=== PATIENT | male | born 1960 | race Caucasian/White ===

== ENCOUNTER → 2016-11-14 | Outpatient (REF) | payer BC, SELFPAY | LOC: M LAB REF 16:53 | PROVIDERS: ATTEND Nurse Practitioner Adult Health | DX: E78.2 Mixed hyperlipidemia (principal) ==

== ENCOUNTER → 2017-05-29 | Outpatient (REF) | payer BC ==
[2017-05-29 12:53] LABS: BLOOD UREA NITROGEN 27 MG/DL (7-18)
[2017-05-29 12:53] LABS: CREATININE FOR GFR 1.33 MG/DL (0.70-1.30)
== END ==
LOC: M LABDRWAD 12:04
DX: I70.212 Atherosclerosis of native arteries of extremities with intermittent claudication, left leg (principal)
CPT/HCPCS: 82565

== ENCOUNTER → 2017-06-01 | Outpatient (REF) | payer BC ==
[2017-06-01 11:07] LABS: BLOOD UREA NITROGEN 32 MG/DL (7-18)
[2017-06-01 11:07] LABS: CREATININE FOR GFR 1.49 MG/DL (0.70-1.30); GLOMERULAR FILTRATION RATE 51.8 (>56)
== END ==
LOC: M LABDRWAD 10:37
DX: Z48.812 Encounter for surgical aftercare following surgery on the circulatory system (principal)

== ENCOUNTER → 2017-06-08 | Outpatient (REF) | payer BC ==
[2017-06-08 13:33] LABS: ANION GAP 7 MEQ/L (8-16); BLOOD UREA NITROGEN 27 MG/DL (7-18); CALCIUM LEVEL 10.1 MG/DL (8.5-10.1); CARBON DIOXIDE LEVEL 29 MEQ/L (21-32); CHLORIDE LEVEL 105 MEQ/L (98-107); CREATININE FOR GFR 1.32 MG/DL (0.70-1.30); GLOMERULAR FILTRATION RATE 59.5 (>56); GLUCOSE, FASTING 118 MG/DL (70-100); SODIUM LEVEL 141 MEQ/L (136-145)
== END ==
LOC: M LAB REF 12:31
DX: E11.21 Type 2 diabetes mellitus with diabetic nephropathy (principal)
CPT/HCPCS: 80048

== ENCOUNTER 2018-06-10 10:18 | Day surgery (SDC) | payer BC ==
[~2018-06-10] VITALS: Ht 188 cm; Wt 126.1 kg
[~2018-06-10 10:18] MED LIST: ADVI1CAP2 PO; LEVO75TA4 PO; LISI-672 PO; METF10004 PO; METO1TAB33 PO; NS 1,000 ML IV ONE; PLAV1TAB2 PO; ROSU40TA3 PO; TRUL0.5I SC
--- NOTE | 2018-06-10 11:34 | ROOR ---
Patient Name: Arnulfo Lozano Procedure Date: 06/10/2018 11:02 AM Date of : 1960 Age: 58 Room: [facility] Gender: Male Note Status: Finalized Procedure: Colonoscopy Indications: High risk colon cancer surveillance: Personal history of colonic polyps Providers: Milo Hobbs Jr, MD Referring MD: Stacey Vergara NP Requesting Provider: Medicines: Propofol per Anesthesia Complications: No immediate complications. Procedure: Pre-Anesthesia Assessment: - Prior to the procedure, a History and Physical was performed, and patient medications and allergies were reviewed. The patient is competent. The risks and benefits of the procedure and the sedation options and risks were discussed with the patient. All questions were answered and informed consent was obtained. Patient identification and proposed procedure were verified by the physician and the nurse in the pre-procedure area and in the procedure room. Mental Status Examination: alert and oriented. Airway Examination: normal oropharyngeal airway and neck mobility. Respiratory Examination: clear to auscultation. CV Examination: normal. ASA Grade Assessment: II - A patient with mild systemic disease. After reviewing the risks and benefits, the patient was deemed in satisfactory condition to undergo the procedure. The anesthesia plan was to use moderate sedation / analgesia (conscious sedation). Immediately prior to administration of medications, the patient was re-assessed for adequacy to receive sedatives. The heart rate, respiratory rate, oxygen saturations, blood pressure, adequacy of pulmonary ventilation, and response to care were monitored throughout the procedure. The physical status of the patient was re-assessed after the procedure. The Colonoscope was introduced through the anus and advanced to the cecum, identified by appendiceal orifice and ileocecal valve. The colonoscopy was performed without difficulty. The patient tolerated the procedure well. The quality of the bowel preparation was adequate. Findings: The rectum, recto-sigmoid colon, sigmoid colon, transverse colon, ascending colon, cecum, appendiceal orifice and ileocecal valve appeared normal. Two polyps were found in the descending colon. The polyps were small in size. These polyps were removed with a jumbo cold forceps. Resection and retrieval were complete. Impression: - The rectum, recto-sigmoid colon, sigmoid colon, transverse colon, ascending colon, cecum, appendiceal orifice and ileocecal valve are normal. - Two small polyps in the descending colon, removed with a jumbo cold forceps. Resected and retrieved. Recommendation: - Discharge patient to home (ambulatory). - Telephone my office for pathology results in 1 week. Milo Hobbs MD Milo Hobbs Jr, MD 06/10/2018 11:33:32 AM This report has been signed electronically. Number of Addenda: 0 Note Initiated On: 06/10/2018 11:02 AM Estimated Blood Loss: Estimated blood loss: none.
[2018-06-10 11:50] VITALS: BP 113/68
== END 2018-06-10 12:00 | disposition home or self-care (01) ==
LOC: M OPP 10:18
PROVIDERS: ATTEND Surgery
DX: Z86.010 Personal history of colon polyps (principal); D12.4 Benign neoplasm of descending colon; G47.30 Sleep apnea, unspecified; I25.2 Old myocardial infarction; Z79.84 Long term (current) use of oral hypoglycemic drugs; Z79.899 Other long term (current) drug therapy; F17.210 Nicotine dependence, cigarettes, uncomplicated; Z95.5 Presence of coronary angioplasty implant and graft

== ENCOUNTER → 2018-06-21 | Outpatient (CLI) | payer BC ==
[~2018-06-21] MED LIST changes: -NS 1,000 ML IV ONE
--- NOTE | 2018-06-21 14:54 | REP ---
Clinical: Peripheral vascular disease . Technique: Rod scale and color Doppler evaluation using linear high frequency transducer Findings: Two-dimensional rod scale and color images demonstrate minimal atheromatous plaquing. Color Doppler interrogation demonstrates normal arterial wave patterns and velocities with no significant spectral broadening. Normal flow direction is appreciated in the bilateral vertebral arteries. RIGHT (cm/s) LEFT (cm/s) ICA peak systolic velocity 97.8 79.2 ICA diastolic velocity 17.8 20.0 ECA peak systolic velocity 132.2 151.0 CCA peak systolic velocity 113.9 122.2 ICA/CCA ratio 0.9 0.8 Impression: No hemodynamically significant areas of narrowing or stenosis appreciated. Based on set standards narrowing falls within the less than 50% range. Electronically Signed by Kaleb Malik MD 06/21/2018 02:45 P
== END ==
LOC: M RAD 14:14
PROVIDERS: ATTEND Physician Assistant
DX: I73.9 Peripheral vascular disease, unspecified (principal)

== ENCOUNTER → 2019-02-03 | Outpatient (CLI) | payer BC ==
[~2019-02-03] MED LIST changes: +ISOVUE-370 76% 100ML VIAL (Q9967) As Ordered ONE; -ROSU40TA3 PO; +ROSU40TA4 PO
--- NOTE | 2019-02-03 13:54 | REP ---
CT ANGIOGRAPHY OF THE AT ABDOMINAL AORTA AND BILATERAL LOWER EXTREMITY RUNOFF ARTERIES WITH IV CONTRAST: HISTORY: Atherosclerosis. Intermittent bilateral claudication. 100 mL of intravenous Isovue 370 is administered. Comparison study is from August 18, 2012. CT ANGIOGRAPHIC FINDINGS: There is diffuse fatty infiltration of the liver. The suprarenal and infrarenal abdominal aorta are normal in caliber. Scattered calcification. The celiac axis is unremarkable. There is a high-grade somewhat elongate stenosis in the proximal SMA, 60-75%. This appears to be unchanged. Singular nonstenotic renal arteries are noted. The distal abdominal aorta shows circumferential atheromatous plaquing with calcific and non- calcific plaquing and high-grade distal aortic stenosis. This is a new finding, 75-80%. The inferior mesenteric artery origin is nonstenotic and a fairly large LAUREN is seen. There is extensive calcific plaquing at the common iliacs. The right common iliac artery is patent but there is a high-grade stenosis. Patent common iliac artery perfuses the internal iliac artery but the right external iliac artery is occluded from its origin. The left common iliac artery is occluded from its origin. There is a left common iliac artery stent which is occluded. The internal iliac artery is perfused but calcific. The distal external iliac artery on the left is reconstituted via collaterals. There is a left to right fem-fem crossover graft in the suprapubic subcutaneous space, however this graft is occluded. Internal epigastric collaterals reconstitute the superficial femoral arteries bilaterally. Profunda femoral arteries are patent bilaterally. There is some mild atherosclerotic irregularity in the superficial femoral arteries but no high-grade stenosis is appreciated. Popliteal arteries are at a fairly good caliber. Trifurcations are clear. Three-vessel calf runoff is seen to the distal calf. IMPRESSION: Extensive aortoiliac disease with new high-grade stenosis of the infrarenal abdominal aorta at the level of the takeoff of the patent LAUREN. There is an SMA stenosis. Bilateral iliac occlusive disease. Occluded fem-fem crossover graft. Electronically Signed by Lambert Way MD 02/03/2019 03:48 P
== END ==
LOC: M RAD 11:32
PROVIDERS: ATTEND Physician Assistant
DX: I70.513 Atherosclerosis of nonautologous biological bypass graft(s) of the extremities with intermittent claudication, bilateral legs (principal)
CPT/HCPCS: 75635; Q9967

== ENCOUNTER → 2019-10-24 | Outpatient (CLI) | payer BC ==
[~2019-10-24] MED LIST changes: -ISOVUE-370 76% 100ML VIAL (Q9967) As Ordered ONE; -LISI-672 PO; +LISI30TA4 PO
--- NOTE | 2019-11-24 17:11 | REP ---
BILATERAL RENAL SONOGRAPHY WITH RENAL ARTERY DOPPLER ASSESSMENT: HISTORY: Chronic kidney disease stage III. FINDINGS: Scanning at the level of the urinary bladder shows no morphologic abnormality. The bladder is not well distended. Renal cortical echogenicity pattern is normal. The renal contours are smooth. There is no evidence of hydronephrosis on either side. No cyst, mass or visible calculus is seen. Right renal dimensions are 11.4 x 5.9 x 5.3 cm and the left measures 11.9 x 4.4 x 6.4 cm. RENAL ARTERY DOPPLER ASSESSMENT: Peak systolic flow velocity in the abdominal aorta at the left main renal artery is measured at 131 cm/sec, which is normal. Peak systolic flow velocity measured in the right main renal artery is 115 cm/sec and the left is measured at 159 cm/sec. Renal to aortic flow velocities are therefore normal bilaterally, measured at 0.9 mm on the right and 1.22 on the left. Resistive induces and acceleration times are measured in the internal arteries of the upper, mid and lower pole of each kidney and these values are normal bilaterally. IMPRESSION: No morphologic abnormality noted. There is no Doppler evidence of renal artery stenosis. MTDD
== END ==
LOC: M RAD 06:45
PROVIDERS: ATTEND Internal Medicine Nephrology
DX: N18.3 Chronic kidney disease, stage 3 (moderate) (principal); I15.1 Hypertension secondary to other renal disorders

== ENCOUNTER → 2020-12-04 | Outpatient (REF) | payer BC ==
[2020-12-04 18:52] LABS: FOLATE 7.3 NG/ML
== END ==
LOC: M LAB REF 16:45
PROVIDERS: ATTEND Nurse Practitioner Adult Health
DX: G60.9 Hereditary and idiopathic neuropathy, unspecified (principal)

== ENCOUNTER → 2021-02-27 | Outpatient (CLI) | payer BC | LOC: M RAD 11:05 | PROVIDERS: ATTEND Physician Assistant | DX: I65.23 Occlusion and stenosis of bilateral carotid arteries (principal) ==

== ENCOUNTER → 2021-06-25 | Outpatient (REF) | payer BC ==
[2021-06-27 08:14] LABS: LDL DIRECT 37 mg/dL (0-99)
== END ==
LOC: M LAB REF 12:20
PROVIDERS: ATTEND Nurse Practitioner Adult Health
DX: E11.65 Type 2 diabetes mellitus with hyperglycemia (principal)

== ENCOUNTER 2021-07-24 11:46 | Observation (INO) | payer BC ==
[~2021-07-24] VITALS: Ht 188 cm; Wt 130.0 kg
[2021-07-24 12:44] LABS: BASO % 0.1 % (0.0-1.0); EOS # 0.2 10^3/uL (0.0-0.5); HEMATOCRIT 47.4 % (42.0-52.0); HEMOGLOBIN 15.5 g/dl (13.5-17.5); LYMPH # 2.9 10^3/uL (1.5-5.0); LYMPH % 36.5 % (24.0-44.0); MEAN CORPUSCULAR HEMOGLOBIN 29.2 pg (27.0-33.0); MEAN CORPUSCULAR HGB CONC 32.7 g/dl (32.0-36.5); MEAN CORPUSCULAR VOLUME 89.3 fl (80.0-96.0); MONO # 0.5 10^3/uL (0.0-0.8); MONO % 6.1 % (2.0-8.0); NEUTROPHILS # 4.3 10^3/uL (1.5-8.5); NEUTROPHILS % 54.9 % (36.0-66.0); PLATELET COUNT, AUTOMATED 186 10^3/uL (150-450); RED BLOOD COUNT 5.31 10^6/uL (4.30-6.10); WHITE BLOOD COUNT 7.8 10^3/uL (4.0-10.0)
[2021-07-24 13:05] LABS: BLOOD UREA NITROGEN 15 MG/DL (7-18); CALCIUM LEVEL 9.2 MG/DL (8.8-10.2); CARBON DIOXIDE LEVEL 28 MEQ/L (21-32); CHLORIDE LEVEL 104 MEQ/L (98-107); CREATININE FOR GFR 1.24 MG/DL (0.70-1.30); GLOMERULAR FILTRATION RATE > 60.0 (>49); GLUCOSE, FASTING 230 MG/DL (70-100); POTASSIUM SERUM 4.2 MEQ/L (3.5-5.1); SODIUM LEVEL 138 MEQ/L (136-145)
[2021-07-24] MEDS ORDERED: FUROSEMIDE 40MG/4ML VIAL (J1940) IV ONE (13:40)
[2021-07-24] MEDS ORDERED: ASPIRIN 81 MG CHEW TABLET PO ONE (13:40)
[2021-07-24] MEDS: NITROGLYCERIN 0.4 MG SUBL TABLET SL PRN ×2 (14:03→14:10)
[2021-07-24 14:13] LABS: INR 0.91; PROTHROMBIN TIME 12.7 SECONDS (12.7-14.5)
[2021-07-24 14:14] LABS: PARTIAL THROMBOPLASTIN TIME 32.3 SECONDS (25.9-37.0)
[2021-07-24] MEDS ORDERED: LEVALBUTEROL HFA 45MCG/ACT 15 GM INHALER INH STA (14:15)
[2021-07-24] MEDS ORDERED: methylPREDNISolone 125MG 2ML VIAL IV ONE (14:15)
[2021-07-24 14:40] LABS: CK-MB VALUE MASS 1.4 NG/ML (<3.6); MB/CK RELATIVE INDEX 2.22 (< OR =4)
[2021-07-24 14:41] LABS: RSV AMPLIFICATION NEGATIVE (NEGATIVE)
[2021-07-24 15:08] LABS: C REACTIVE PROTEIN QUANTITATIV 1.92 MG/DL (0.00-0.30); FERRITIN 147 NG/ML (26-388); LDH LACTATE DEHYDROGENASE 188 U/L (87-241); MAGNESIUM LEVEL 1.7 MG/DL (1.8-2.4); NT-PRO BNP 40 PG/ML (<125)
[2021-07-24 15:21] LABS: D-DIMER QUANT 1198.64 ng/ml (<500)
[2021-07-24] MEDS ORDERED: ISOVUE-370 76% 100ML VIAL As Ordered ONE (15:36)
[2021-07-24] MEDS ORDERED: GLUCAGON INJ 1MG VIAL SC PRN (18:25)
[2021-07-24] MEDS ORDERED: MAALOX 30 ML SUSP *UDC PO PRN (18:25)
[2021-07-24] MEDS ORDERED: GLUCOSE 4GM CHEW TABLET PO PRN (18:25)
[2021-07-24] MEDS ORDERED: DEXTROSE 50% 50 ML SYRINGE IV PRN (18:25)
[2021-07-24] MEDS ORDERED: ACETAMINOPHEN TAB 650MG DOSE (2X325MG) PO PRN (18:25)
[2021-07-24] MEDS ORDERED: HumaLOG INSULIN (NovoLOG) PER UNIT SC SCH (21:00)
[2021-07-24] MEDS ORDERED: REMDESIVIR 200 MG in NS 250 ML IV ONE (21:00)
[2021-07-24] MEDS ORDERED: ENOXAPARIN 40MG/0.4ML SYRINGE (J1650 PER 10MG) SC SCH (21:00)
[2021-07-24] MEDS: DOCUSATE SODIUM 100MG CAPSULE PO SCH (21:00)
[2021-07-24 21:22] VITALS: BP 142/78
[2021-07-24 22:06] VITALS: O2SAT 96
[2021-07-24] MEDS ORDERED: SODIUM CHLORIDE 0.9% INJ 10 ML SYR IV ONE (23:00)
[2021-07-24] MEDS ORDERED: BUPR300T92 PO (23:15)
[2021-07-24] MEDS ORDERED: ACET25TA12 PO (23:15)
[2021-07-24] MEDS ORDERED: SYNT100T PO (23:15)
[2021-07-24] MEDS ORDERED: LISI10TA22 PO (23:15)
[2021-07-24] MEDS ORDERED: GLIP5TAB8 PO ×2 (23:15)
[2021-07-24] MEDS ORDERED: INSUH10VL SC (23:15)
[2021-07-24] MEDS ORDERED: TRES100I SC (23:15)
[2021-07-24] MEDS ORDERED: TOPR100T PO (23:15)
[2021-07-24] MEDS ORDERED: AMLO1TAB25 PO (23:15)
[2021-07-24] MEDS ORDERED: HOME MED LIST COMPLETE! XX SCH (23:20)
[2021-07-25 00:20] VITALS: O2SAT 82
[2021-07-25 00:22] VITALS: O2SAT 99
[2021-07-25 04:00] VITALS: BP 104/58
[2021-07-25] MEDS ORDERED: LEVOTHYROXINE 100MCG TABLET (0.1MG) PO SCH (06:00)
[2021-07-25 06:21] LABS: HEMATOCRIT 44.9 % (42.0-52.0); HEMOGLOBIN 14.3 g/dl (13.5-17.5); MEAN CORPUSCULAR HEMOGLOBIN 28.9 pg (27.0-33.0); MEAN CORPUSCULAR HGB CONC 31.8 g/dl (32.0-36.5); MEAN CORPUSCULAR VOLUME 90.7 fl (80.0-96.0); PLATELET COUNT, AUTOMATED 183 10^3/uL (150-450); RED BLOOD COUNT 4.95 10^6/uL (4.30-6.10); WHITE BLOOD COUNT 7.4 10^3/uL (4.0-10.0)
[2021-07-25 06:30] LABS: INR 0.94
[2021-07-25 06:31] LABS: PARTIAL THROMBOPLASTIN TIME 34.2 SECONDS (25.9-37.0)
[2021-07-25 06:34] LABS: D-DIMER QUANT 1321.35 ng/ml (<500)
[2021-07-25 06:40] LABS: BLOOD UREA NITROGEN 16 MG/DL (7-18); CALCIUM LEVEL 8.8 MG/DL (8.8-10.2); CARBON DIOXIDE LEVEL 27 MEQ/L (21-32); CHLORIDE LEVEL 108 MEQ/L (98-107); CREATININE FOR GFR 1.05 MG/DL (0.70-1.30); GLOMERULAR FILTRATION RATE > 60.0 (>49); GLUCOSE, FASTING 173 MG/DL (70-100); MAGNESIUM LEVEL 1.9 MG/DL (1.8-2.4); POTASSIUM SERUM 4.2 MEQ/L (3.5-5.1); SODIUM LEVEL 141 MEQ/L (136-145)
[2021-07-25 06:46] LABS: C REACTIVE PROTEIN QUANTITATIV 1.56 MG/DL (0.00-0.30)
[2021-07-25] MEDS ORDERED: HumaLOG INSULIN (NovoLOG) PER UNIT SC SCH (07:30)
[2021-07-25] MEDS: DOCUSATE SODIUM 100MG CAPSULE PO SCH (07:52)
[2021-07-25 08:00] VITALS: BP 136/66
[2021-07-25 08:26] VITALS: BP 136/66
[2021-07-25] MEDS: COMBIVENT RESPIMAT 100-20MCG INHALER 4GM INH SCH ×2 (08:27→11:36)
[2021-07-25] MEDS ORDERED: ASPIRIN 81MG ENTERIC TABLET PO SCH (09:00)
[2021-07-25] MEDS ORDERED: dexameTHASONE 4 MG/ML 1ML VIAL (J1100 PER 1MG) IV SCH (09:00)
[2021-07-25] MEDS ORDERED: METOPROLOL SUCC (TopROL XL) 100MG *XL* TAB PO SCH (09:00)
[2021-07-25 09:18] VITALS: BP 105/51
[2021-07-25] MEDS ORDERED: PRED10TA2 PO (12:27)
[2021-07-25] MEDS ORDERED: PROAAER10 INH (12:27)
[2021-07-25] MEDS ORDERED: NIRM1TAB PO (12:37)
[2021-07-25] MEDS ORDERED: buPROPion **XL** TABLET 150MG (WELLBUTRIN XL) PO SCH (21:00)
[2021-07-25] MEDS ORDERED: REMDESIVIR 100 MG in NS 250 ML IV SCH (21:00)
[2021-07-25] MEDS ORDERED: ROSUVASTATIN 10 MG TAB (CRESTOR) PO SCH (21:00)
[2021-07-25] MEDS ORDERED: CLOPIDOGREL 75 MG TAB PO SCH (21:00)
[2021-07-25] MEDS ORDERED: SODIUM CHLORIDE 0.9% INJ 10 ML SYR IV SCH (22:00)
[2021-07-26] MEDS ORDERED: dexameTHASONE 4 MG/ML 1ML VIAL (J1100 PER 1MG) IV SCH (08:00)
== END 2021-07-25 13:54 | disposition home or self-care (01) ==
LOC: M ED 11:46 → M ED INP 18:22 → ENRESERV 18:54 → M 4MAIN 21:16
PROVIDERS: ADMIT Family Medicine; ATTEND Family Medicine
DX: U07.1 COVID-19 (principal); R07.9 Chest pain, unspecified; I16.0 Hypertensive urgency; R09.02 Hypoxemia; R06.02 Shortness of breath; R79.1 Abnormal coagulation profile; I25.10 Atherosclerotic heart disease of native coronary artery without angina pectoris; Z95.5 Presence of coronary angioplasty implant and graft; I25.2 Old myocardial infarction; E11.51 Type 2 diabetes mellitus with diabetic peripheral angiopathy without gangrene; I11.9 Hypertensive heart disease without heart failure; E03.9 Hypothyroidism, unspecified; Z86.718 Personal history of other venous thrombosis and embolism; G47.33 Obstructive sleep apnea (adult) (pediatric); Z79.899 Other long term (current) drug therapy; Z79.02 Long term (current) use of antithrombotics/antiplatelets; Z79.84 Long term (current) use of oral hypoglycemic drugs
CPT/HCPCS: 36415; 71045; 71275; 80048; 82550; 82553; 82728; 83605; 83615; 83735; 83880; 84145; 84484; 85025; 85027; 85379; 85384; 85610; 85730; 86140; 87040; 87631; 93005; 93041; 94640; 94664; 94760; 96365; 96366; 96372; 96375; 99285; J0248; J1100; J1650; J1815; J1940; J2930; Q9967